=== PATIENT | male | born 1980 ===

== ENCOUNTER 2016-05-04 14:29 | Emergency (ER) | payer OTHER ==
[2016-05-04 15:21] VITALS: BP 148/92
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
== END 2016-05-04 16:59 | disposition home or self-care (01) ==
LOC: ED 14:29
DX: S29.012A Strain of muscle and tendon of back wall of thorax, initial encounter (principal); F12.10 Cannabis abuse, uncomplicated; F17.200 Nicotine dependence, unspecified, uncomplicated; V89.2XXA Person injured in unspecified motor-vehicle accident, traffic, initial encounter; Y93.9 Activity, unspecified; Y99.9 Unspecified external cause status; Y92.410 Unspecified street and highway as the place of occurrence of the external cause
CPT/HCPCS: 99283